=== PATIENT | male | born 1975 | race Hispanic/Latino ===

== ENCOUNTER 2021-12-04 08:56 | Outpatient (CLI) | payer BC ==
[2021-12-04 21:11] LABS: SARS-CoV-2 PCR by NAA Not Detected (NotDetected)
== END 2021-12-04 08:57 | disposition home or self-care (01) ==
LOC: CSHLAB 08:56
PROVIDERS: ATTEND Surgery
DX: Z01.818 Encounter for other preprocedural examination (principal); Z20.822 Contact with and (suspected) exposure to COVID-19; K43.2 Incisional hernia without obstruction or gangrene
CPT/HCPCS: 93005; 93010; U0003; U0005

== ENCOUNTER 2022-02-04 10:08 | Outpatient (CLI) | payer BC | END 2022-02-04 10:09 | disposition home or self-care (01) | LOC: CSHLAB 10:08 | PROVIDERS: ATTEND Surgery | DX: Z20.822 Contact with and (suspected) exposure to COVID-19 (principal); K43.2 Incisional hernia without obstruction or gangrene | CPT/HCPCS: U0003; U0005 ==

== ENCOUNTER 2022-02-07 05:51 | Day surgery (SDC) | payer BC ==
[2022-02-05 12:36] VITALS: BMI 34.8
[2022-02-07] MEDS ORDERED: Lidocaine 1% MPF 2 ML VIAL ONE (06:32)
[2022-02-07] MEDS ORDERED: EPINEPHrine 1 MG/ML AMP ONE (06:49)
[2022-02-07] MEDS ORDERED: Bupivacaine PF 0.5% 30 ML VIAL ONE (06:50)
[2022-02-07] MEDS ORDERED: Midazolam HCl 2 mg/2 ml Vial ONE (07:03)
[2022-02-07] MEDS ORDERED: Rocuronium Bromide 10 MG/ML (10ML VIAL) ONE (07:14)
[2022-02-07] MEDS ORDERED: PROPOFOL 20 ML ONE (07:14)
[2022-02-07] MEDS ORDERED: Dexamethasone 4 mg/ml Vial ONE (07:14)
[2022-02-07] MEDS ORDERED: Fentanyl 250 MCG/5 ML VIAL ONE (07:14)
[2022-02-07] MEDS ORDERED: Ondansetron PF 4 MG/2 ML Vial ONE (07:14)
[2022-02-07] MEDS ORDERED: Lidocaine 1% PF 5 ML VIAL ONE (07:14)
[2022-02-07] MEDS ORDERED: CEFAZOLIN 2 GM VIAL ONE (07:24)
[2022-02-07] MEDS ORDERED: PHENYLEPHRINE-NS 100 MCG/ML 10 ML SYRINGE ONE (08:20)
[2022-02-07] MEDS ORDERED: SUGAMMADEX SODIUM 200 MG/2 ML VIAL ONE (08:25)
[2022-02-07] MEDS ORDERED: ePHEDrine Sulfate 50 MG/10 ML VIAL ONE (08:25)
[2022-02-07] MEDS ORDERED: Acetaminophen 325 MG TAB PO PRN (08:47)
[2022-02-07] MEDS ORDERED: HYDROcodone/Acetaminophen 5/325 mg Tablet PO PRN (08:47)
== END 2022-02-07 10:20 | disposition home or self-care (01) ==
LOC: CSHSDC 05:51
PROVIDERS: ATTEND Surgery
DX: K43.2 Incisional hernia without obstruction or gangrene (principal); I10 Essential (primary) hypertension; M19.90 Unspecified osteoarthritis, unspecified site; E78.5 Hyperlipidemia, unspecified; N40.0 Benign prostatic hyperplasia without lower urinary tract symptoms; Z85.528 Personal history of other malignant neoplasm of kidney; Z79.82 Long term (current) use of aspirin; Z79.899 Other long term (current) drug therapy; Z90.5 Acquired absence of kidney
CPT/HCPCS: C1713; J0171; J0690; J1100; J2250; J2405; J2704; J3010; S0020